=== PATIENT | male | born 1995 | race Two or more races ===

== ENCOUNTER 2024-05-22 20:52 | Emergency (ER) | payer SELFPAY ==
[~2024-05-22] VITALS: Ht 182.9 cm; Wt 68.1 kg
[2024-05-22 21:10] VITALS: BP 108/72; PULSE 117; RESP 16; TEMP 99.7; O2SAT 95
[2024-05-22] MEDS ORDERED: SODIUM CHLORIDE 0.9% 1,000 ML IV ONE ×2 (21:15)
[2024-05-22] MEDS ORDERED: THIAMINE 100mg/ml INJ (200mg/2ml VIAL) IV ONE (21:15)
[2024-05-22] MEDS ORDERED: cefTRIAXone 1GM/50ML D5W 50 ML IV ONE (21:15)
[2024-05-22] MEDS ORDERED: TETANUS-DIPTH-ACEL PERTUSSIS 0.5ML SYR Tdap IM ONE (21:15)
== END 2024-05-22 21:27 | disposition left against medical advice (07) ==
LOC: ER 20:52
DX: S09.90XA Unspecified injury of head, initial encounter (principal); F10.19 Alcohol abuse with unspecified alcohol-induced disorder; V86.59XA Driver of other special all-terrain or other off-road motor vehicle injured in nontraffic accident, initial encounter; Y93.89 Activity, other specified; Y92.89 Other specified places as the place of occurrence of the external cause; Y99.8 Other external cause status
CPT/HCPCS: 36415; 80320